=== PATIENT | male | born 1940 | race Caucasian/White ===

== ENCOUNTER → 2016-12-03 | Outpatient (CLI) | payer OTHER | END | disposition home or self-care (01) | LOC: PCVCCLINIC 15:00 | PROVIDERS: ATTEND Internal Medicine Cardiovascular Disease | DX: I10 Essential (primary) hypertension (principal); E11.9 Type 2 diabetes mellitus without complications; E78.4 Other hyperlipidemia; I42.9 Cardiomyopathy, unspecified; Z95.810 Presence of automatic (implantable) cardiac defibrillator; Z79.82 Long term (current) use of aspirin; Z87.891 Personal history of nicotine dependence | CPT/HCPCS: 80061; 93005; G0463 ==

== ENCOUNTER → 2016-12-17 | Outpatient (CLI) | payer OTHER | END | disposition home or self-care (01) | LOC: PCVCIMAG 15:50 | PROVIDERS: ATTEND Internal Medicine Cardiovascular Disease | DX: I42.8 Other cardiomyopathies (principal); E11.9 Type 2 diabetes mellitus without complications; I10 Essential (primary) hypertension; Z95.0 Presence of cardiac pacemaker | CPT/HCPCS: 93306 ==

== ENCOUNTER → 2017-09-20 | Outpatient (CLI) | payer OTHER | END | disposition home or self-care (01) | LOC: PCVCCLINIC 14:25 | DX: I10 Essential (primary) hypertension (principal); I42.9 Cardiomyopathy, unspecified; E78.00 Pure hypercholesterolemia, unspecified; J44.9 Chronic obstructive pulmonary disease, unspecified; G47.30 Sleep apnea, unspecified; Z95.0 Presence of cardiac pacemaker; Z87.891 Personal history of nicotine dependence; Z79.899 Other long term (current) drug therapy; Z79.82 Long term (current) use of aspirin | CPT/HCPCS: 80061; 93005; G0463 ==

== ENCOUNTER → 2018-04-11 | Outpatient (CLI) | payer OTHER | END | disposition home or self-care (01) | LOC: PCVCCLINIC 15:03 | PROVIDERS: ATTEND Internal Medicine Cardiovascular Disease | DX: I11.0 Hypertensive heart disease with heart failure (principal); I50.23 Acute on chronic systolic (congestive) heart failure; I63.9 Cerebral infarction, unspecified; I42.9 Cardiomyopathy, unspecified; E78.00 Pure hypercholesterolemia, unspecified; E78.5 Hyperlipidemia, unspecified; M79.604 Pain in right leg; M79.605 Pain in left leg; G47.30 Sleep apnea, unspecified; J44.9 Chronic obstructive pulmonary disease, unspecified; Z95.810 Presence of automatic (implantable) cardiac defibrillator; F17.210 Nicotine dependence, cigarettes, uncomplicated; Z79.82 Long term (current) use of aspirin | CPT/HCPCS: 80061; 93005; G0463 ==

== ENCOUNTER → 2018-04-14 | Outpatient (CLI) | payer OTHER ==
--- NOTE | 2018-04-14 12:25 | PCVCIMAG ---
EXAM: BILATERAL LOWER EXTREMITY ARTERIAL DUPLEX INDICATION: Peripheral Arterial Disease. Leg pain. FINDINGS: Right Leg: Common femoral and profunda femoral arteries are patent. Complete occlusion throughout the superficial femoral artery. The popliteal artery refills and appears patent. The peroneal artery is occluded. The anterior tibial and posterior tibial arteries are patent. Left Leg: Common femoral and profunda femoral arteries are patent. Increased systolic velocity of 547 cm/s distal [place] superficial femoral artery consistent with 95% stenosis. Popliteal artery is patent. The anterior tibial, peroneal, and posterior tibial arteries are patent. IMPRESSION: Complete occlusion throughout the right superficial femoral artery. 95% stenosis distal [place] left superficial femoral artery. LOC:[id number]
== END | disposition home or self-care (01) ==
LOC: PCVCIMAG 11:08
PROVIDERS: ATTEND Internal Medicine Cardiovascular Disease
DX: I73.9 Peripheral vascular disease, unspecified (principal)
CPT/HCPCS: 93925

== ENCOUNTER → 2018-04-18 | Outpatient (CLI) | payer OTHER | LOC: PCVCCLINIC 14:47 | PROVIDERS: ATTEND Nuclear Medicine Nuclear Cardiology | DX: I11.0 Hypertensive heart disease with heart failure (principal); I50.43 Acute on chronic combined systolic (congestive) and diastolic (congestive) heart failure; I50.9 Heart failure, unspecified; J44.9 Chronic obstructive pulmonary disease, unspecified; E78.00 Pure hypercholesterolemia, unspecified | CPT/HCPCS: 36415; G0463 ==

== ENCOUNTER → 2018-04-25 | Outpatient (CLI) | payer OTHER ==
[~2018-04-25] MED LIST: CLOPIDOGREL BISULFATE 75 MG TABLET ONE; DIAZEPAM 10 MG TABLET. ONE; EPTIFIBATIDE BOLUS 2,000 MCG/ML 10ML VIAL. IV ONE; HEPARIN SODIUM 5,000 UNIT/ML VIAL for PCVC. ONE; IODIXANOL 270 MG/ML 100 ML VIAL. ONE; IV NORMAL SALINE 1000ML BAG 1,000 ML ONE; LIDOCAINE 1%/EPI 1:100,000 20 ML VIAL. ONE; MIDAZOLAM HCL/PF 2 MG/2 ML VIAL. ONE; fentaNYL PF VIAL 100 MCG/2 ML VIAL ONE
--- NOTE | 2018-04-25 11:04 | PCVCINTER ---
EXAM: 1. AORTOGRAM AND BILATERAL LOWER EXTREMITY RUNOFF ANGIOGRAM 2. BILATERAL RENAL ANGIOGRAPHY 3. LEFT SUPERFICIAL FEMORAL ARTERY ATHERECTOMY AND STENT PLACEMENT. 4. SECONDARY THROMBECTOMY LEFT SUPERFICIAL FEMORAL ARTERY. 5. DRUG COATED BALLOON ANGIOPLASTY LEFT SUPERFICIAL FEMORAL ARTERY. 6. RIGHT RENAL ARTERY STENT PLACEMENT. INDICATION: Peripheral arterial disease. Bilateral claudication. Hypertension. Renal atherosclerosis. No prior catheter based angiographic study is available. A full diagnostic angiogram study is performed today and the decision to intervene is based on this diagnostic study. PROCEDURE: Procedure and risks of angiography intervention is appropriate including limb loss stroke and were discussed with the patient's family and consent obtained. The patient's right groin was prepped in the normal sterile fashion. IV conscious sedation was used throughout procedure with appropriate monitoring from 8:45 AM through 10:15 AM. Ultrasound was used to interrogate the right groin and showed the right common femoral artery to be patent. A permanent spot film was obtained. Under ultrasound guidance access into the right common femoral artery was obtained and a 5 [place]ar[place] sheath was placed. Through this a 5 [place]arag[place] flush catheter was placed into the abdominal aorta at the level of the renal arteries and AP aortogram was performed. Catheter was positioned at the aortic bifurcation and both oblique views of the pelvis were obtained. Catheter was positioned into the right external iliac artery and right leg runoff angiography was performed. Catheter was exchanged for a visceral catheter was placed into the right renal arteries and right renal angiograms obtained. Catheter was placed into the the left renal arteries and left renal angiograms were obtained. Catheter was advanced to the level of the left external iliac artery and left leg runoff angiography was obtained. Patient was given 4500 units of heparin. Stent placement across the areas of high-grade stenosis in the right renal artery was carried out with a 7 x 18 [place] blue with subsequent dilatation to 8.0 mm. A 6 [place]ar[place]uan crossover sheath was placed via the right groin to the level of the left common femoral artery. Atherectomy of the left superficial femoral artery was performed with 2.0 mm [employer] laser atherectomy catheter in the standard fashion. Following atherectomy small areas of thrombus were observed and because of this secondary thrombectomy throughout the left superficial femoral artery was carried out with mechanical suction thrombectomy catheter in the standard fashion. Minimal debris was removed. Stent placement across the areas of high-grade stenosis in the left superficial femoral artery was carried out with a 8 x 120 Smart control stent with subsequent dilatation to 6.0 mm. Following this drug coated balloon angioplasty of the left superficial femoral artery was carried out with a 6 x 120 and 6 x 40 [employer] Living Jackie Thai UNDERCOLLAR BASTER catheters. Follow-up angiogram was performed. Catheters and wires removed. Sheath was removed and hemostasis obtained using the FISH device. No immediate complications. FINDINGS: Aortogram: There is one right and one left renal artery. Moderate plaque infrarenal abdominal aorta with moderate tortuosity without significant stenosis. Pelvis: Mild ectasia of the right and left common iliac arteries without significant stenosis. Both internal iliac arteries are patent. Moderate plaque both external iliac arteries causing only mild stenosis. Moderate plaque in the right and left common femoral arteries. Right common and profunda femoral arteries are patent. Mild stenosis lower left common femoral artery. Left profunda femoral artery is patent. Right renal artery: Moderate plaque at the origin vessel causing 80% stenosis. No branch vessel stenosis. Left renal artery: Mild plaque proximal vessel causes minimal stenosis. Right leg: Long segment occlusion superficial femoral artery begins 2-3 cm beyond its origin. The superficial femoral artery refills in its distal most portion. Mild stenosis upper popliteal artery. 40% stenosis lower popliteal artery. Three-vessel runoff into the foot with the posterior tibial artery being dominant. Left leg: Calcific plaque mid/distal superficial femoral artery results in areas of 80 and 90% stenosis. The popliteal artery is patent. Three-vessel runoff into the foot. Left superficial femoral artery: Following procedure as above vessel shows good patency. Right renal artery: Following stent placement good patency at the right renal arteries restored. IMPRESSION: 80 and 90% stenoses mid/distal [place] left superficial femoral artery was treated as above with good patency restored. 80% right renal artery stenosis was treated with stent placement with good patency restored. Occlusion [place] right superficial femoral artery. Patient will return next week for correction of this. LOC:[id number]
== END | disposition home or self-care (01) ==
LOC: PCVCIMAG 12:54
PROVIDERS: ATTEND Nuclear Medicine Nuclear Cardiology
DX: I70.213 Atherosclerosis of native arteries of extremities with intermittent claudication, bilateral legs (principal); I71.4 Abdominal aortic aneurysm, without rupture; I42.9 Cardiomyopathy, unspecified; J44.9 Chronic obstructive pulmonary disease, unspecified; I50.9 Heart failure, unspecified; E78.00 Pure hypercholesterolemia, unspecified; F17.210 Nicotine dependence, cigarettes, uncomplicated; G47.30 Sleep apnea, unspecified; Z86.73 Personal history of transient ischemic attack (TIA), and cerebral infarction without residual deficits; Z79.82 Long term (current) use of aspirin; Z95.810 Presence of automatic (implantable) cardiac defibrillator; Z98.890 Other specified postprocedural states; Z79.899 Other long term (current) drug therapy
CPT/HCPCS: 36252; 37186; 37227; 37236; 75716; 76937; C1725; C1751; C1757; C1760; C1769; C1876; C1885; C1887; C1894; C2623; J1327; J1644; J2250; J3010; J3490; J7030; 99152; 99153

== ENCOUNTER → 2018-05-05 | Outpatient (CLI) | payer OTHER ==
[~2018-05-05] MED LIST changes: +FUROSEMIDE 40 MG/4 ML VIAL. ONE; -HEPARIN SODIUM 5,000 UNIT/ML VIAL for PCVC. ONE; +HEPARIN for ARTERIAL LINE 1,500 ML ONE; +HEPARIN for SUB-Q USE 5,000 UNIT/ML VIAL. ONE; +IOHEXOL 350 MG/ML 100 ML VIAL. ONE; +IOHEXOL 350 MG/ML 50 ML VIAL. ONE
--- NOTE | 2018-05-05 22:50 | PCVCINTER ---
EXAM: 1. RIGHT SUPERFICIAL FEMORAL ARTERY ATHERECTOMY AND STENT PLACEMENT. 2. SECONDARY THROMBECTOMY RIGHT SUPERFICIAL FEMORAL ARTERY. 3. DRUG COATED BALLOON ANGIOPLASTY RIGHT SUPERFICIAL FEMORAL ARTERY. INDICATION: Peripheral arterial disease. Coronary artery disease. Nonhealing ulcer right lower extremity. Hypertension. Renal atherosclerosis. No prior catheter based angiographic study is available. A full diagnostic angiogram study is performed today and the decision to intervene is based on this diagnostic study. PROCEDURE: Procedure and risks of angiography intervention is appropriate including limb loss stroke and were discussed with the patient's family and consent obtained. The patient's left groin was prepped in the normal sterile fashion. IV conscious sedation was used throughout procedure with appropriate monitoring from 11:15 AM through 12:30 PM. Ultrasound was used to interrogate the left groin and showed the left common femoral artery to be patent. A permanent spot film was obtained. Under ultrasound guidance access into the left common femoral artery was obtained and a 6 Lao crossover sheath was placed via the left groin to the level of the right common femoral artery. Atherectomy of the right superficial femoral artery was performed with 2.0 mm [place] laser atherectomy catheter in the standard fashion. Following atherectomy small areas of thrombus were observed and because of this secondary thrombectomy throughout the right superficial femoral artery was carried out with mechanical suction thrombectomy catheter in the standard fashion. Minimal debris was removed. Stent placement across the areas of high-grade stenosis in the right superficial femoral artery was carried out with a 8 x 150, 8 x 150, an 8 x 100 Smart control stents with subsequent dilatation to 6.0 mm. Following this drug coated balloon angioplasty of the right superficial femoral artery was carried out with a 6 x 120, 6 x 120, 6 x 120, and 6 x 40 [employer] Jackie Thai EDITORIAL MANAGER catheters. Follow-up angiogram was performed. Catheters and wires removed. Sheath was removed and hemostasis obtained using the FISH device. No immediate complications. FINDINGS: Right superficial femoral artery: Following procedure as above vessel shows good patency throughout. Note is made of relatively slow flow throughout both lower extremities consistent with patient's known severely decreased cardiac ejection fraction. 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 Note is made of an area of mild residual stenosis mid upper superficial femoral artery not felt to be hemodynamically significant. Unchanged 50% stenosis distal popliteal artery. LOC:OFFICE
--- NOTE | 2018-05-11 14:22 | PCVCINTER ---
APPROVED REPORT Study performed: 05/05/2018 12:41:57 Patient Details Patient Status: Out-Patient Room #: 2 The patient is a 77 year-old Male Event Personnel Brea Givens MD, Nicolasa Gamino RT(R)(), Memo Laughlin RT(R), Brian Klein RN Risk Factors Arterial HypertensionDysplipidemia (Type: 1), Cerebrovascular DiseasePeripheral Vascular Disease, Chronic Lung DiseaseHypercholesterolemiaPhysical Activity, Last Creatanine 1.5Tobacco History (Current/Recent(w/in 1 year)) Previous Procedures/Diagnoses Previous Femoral Procedure, Hypertension, CHF, Diabetes, PVD Procedure Narrative The patient was brought electively to the Cardiac Catheterization Laboratory and was prepped and draped in a sterile manner. A Right Heart Catheterization was performed with a 7 Fr. Thebes-Yesi catheter and pressure were recorded. Cardiac outputs were obtained by the Thermal DilutionFick and Thermal Dilution method. A 6F sheath was inserted into the right femoral artery. Coronary angiography was performed using coronary diagnostic catheters. The right coronary system was accessed and visualized with a JR4 catheter. The left coronary system was accessed and visualized with a JL4 catheter. The left ventricle was accessed and visualized with a Straight Pigtail catheter. Left ventriculogram was performed in [place] projection. Closure device was deployed with a 6 Fr FISH. Hemostasis was obtained with manual pressure following sheath removal without any complications. The patient tolerated the procedure well and there were no complications associated with the procedure. There was no hematoma. Hemodynamics The right atrial mean pressure is 13 mmHg. The right ventricular pressure is 57/11 mmHg. The pulmonary artery pressure is 48/32 mmHg with a mean of 40 mmHg. The mean pulmonary capillary wedge pressure is 29 mmHg. The aortic pressure is 113/55 mmHg with a mean of 81 mmHg. The left ventricular pressure is 115/19 mmHg with a mean of 17 mmHg. The cardiac output using thermo method is 2.52 L/min. The cardiac index using thermo method is 1.1 L/min/m2. Conclusion #1 successful right heart catheterization with moderate elevation of pulmonary pressure see above #2 moderate left ventricular elevation moderately severe global hypokinesis EF 15-20% range #3 large left main with mild disease giving rise to LAD and circumflex #4 LAD diagonal system is moderate size with mild plaquing no occlusive disease #5 a large circumflex OM although nondominant has an eccentric lesion of 50-60% no occlusive disease #6 large dominant right coronary artery is widely patent Recommendations and plan: We'll continue aggressive risk factor modification. Needs aggressive diuresis. Saw fluid restriction revisited. Close follow-up will be scheduled. No indication for coronary intervention
== END | disposition home or self-care (01) ==
LOC: PCVCINTER 12:47
PROVIDERS: ATTEND Internal Medicine Cardiovascular Disease
DX: I70.238 Atherosclerosis of native arteries of right leg with ulceration of other part of lower leg (principal); L97.819 Non-pressure chronic ulcer of other part of right lower leg with unspecified severity; I70.92 Chronic total occlusion of artery of the extremities; I25.10 Atherosclerotic heart disease of native coronary artery without angina pectoris; E11.9 Type 2 diabetes mellitus without complications; I11.0 Hypertensive heart disease with heart failure; I50.20 Unspecified systolic (congestive) heart failure; I70.1 Atherosclerosis of renal artery; Z79.84 Long term (current) use of oral hypoglycemic drugs; N40.0 Benign prostatic hyperplasia without lower urinary tract symptoms; Z86.73 Personal history of transient ischemic attack (TIA), and cerebral infarction without residual deficits; E78.5 Hyperlipidemia, unspecified; Z85.46 Personal history of malignant neoplasm of prostate; Z98.890 Other specified postprocedural states; Z90.79 Acquired absence of other genital organ(s); F17.210 Nicotine dependence, cigarettes, uncomplicated; Z72.89 Other problems related to lifestyle; Z88.1 Allergy status to other antibiotic agents; Z88.8 Allergy status to other drugs, medicaments and biological substances; Z79.899 Other long term (current) drug therapy; Z79.82 Long term (current) use of aspirin; I42.9 Cardiomyopathy, unspecified; I44.7 Left bundle-branch block, unspecified; Z95.810 Presence of automatic (implantable) cardiac defibrillator; G47.30 Sleep apnea, unspecified; J44.9 Chronic obstructive pulmonary disease, unspecified
CPT/HCPCS: 37186; 37227; 76937; 93460; 99152; 99153; C1725; C1751; C1757; C1760; C1769; C1876; C1885; C1887; C1894; C2623; J1327; J1644; J1940; J2250; J3010; J3490; J7030; Q9967; 93458

== ENCOUNTER → 2018-08-09 | Outpatient (CLI) | payer MEDICARE, OTHER ==
--- NOTE | 2018-08-09 08:35 | PCVCIMAG ---
EXAM: BILATERAL CAROTID DUPLEX INDICATION: Carotid Occlusive Disease. FINDINGS: Doppler Measurements (centimeters per second): RIGHT: Peak CCA-61, Peak ECA-100, Diastolic ICA-33, Peak ICA-82, ICA/CCA Ratio-1.3. LEFT: Peak CCA-86, Peak ECA-121, Diastolic ICA-21, Peak ICA-106, ICA/CCA Ratio-1.2. RIGHT CAROTID: The carotid bulb has moderate plaque. The proximal internal carotid artery shows <40% stenosis. The common carotid artery shows no significant stenosis. The external carotid artery shows no significant stenosis. LEFT CAROTID: The carotid bulb has moderate plaque. The proximal internal carotid artery shows <40% stenosis. The common carotid artery shows no significant stenosis. The external carotid artery shows no significant stenosis. Antegrade flow in both vertebral arteries. IMPRESSION: <40% stenosis of the right internal carotid artery with moderate plaque. <40% stenosis of the left internal carotid artery with moderate plaque. LOC:[place] [id number]
--- NOTE | 2018-08-09 10:25 | PCVCIMAG ---
EXAM: BILATERAL LOWER EXTREMITY ARTERIAL DUPLEX INDICATION: Peripheral Arterial Disease. Leg pain. FINDINGS: Right Leg: Satisfactory arterial waveforms throughout the common/profunda/superficial femoral, popliteal, anterior tibial, peroneal, and posterior tibial arteries. No flow limiting stenosis seen. Previous superficial femoral artery stent maintaining good patency. Left Leg: Satisfactory arterial waveforms throughout the common/profunda/superficial femoral, popliteal, anterior tibial, peroneal, and posterior tibial arteries. No flow limiting stenosis seen. Superficial femoral artery stent maintaining good patency. IMPRESSION: No flow limiting stenosis in the right lower extremity. No flow limiting stenosis in the left lower extremity. Previous bilateral superficial femoral artery stents maintaining good patency. LOC:[id number]
== END | disposition home or self-care (01) ==
LOC: PCVCIMAG 08:15
PROVIDERS: ATTEND Internal Medicine Cardiovascular Disease
DX: I65.23 Occlusion and stenosis of bilateral carotid arteries (principal); I73.9 Peripheral vascular disease, unspecified; E78.00 Pure hypercholesterolemia, unspecified; E11.9 Type 2 diabetes mellitus without complications; I63.9 Cerebral infarction, unspecified; E78.5 Hyperlipidemia, unspecified
CPT/HCPCS: 93880; 93925

== ENCOUNTER → 2018-10-14 | Outpatient (CLI) | payer MEDICARE ==
--- NOTE | 2018-10-14 10:28 | PCVCIMAG ---
APPROVED REPORT Study performed: 10/14/2018 09:17:29 EXAM: Comprehensive 2D, Doppler, and color-flow Echocardiogram Patient Location: Echo lab Status: routine BSA: 2.23 HR: 100 bpmBP: 114/68 mmHg Rhythm: Pacemaker, tachycardia Other Information Study Quality: Technically Limited Technically limited study due to lung disease. Indications Congestive Heart Failure COPD Cardiomyopathy ICD 2D Dimensions IVSd: 15.24 (7-11mm) LVDd: 56.94 mm PWd: 11.99 (7-11mm)Ascending Ao: 34.52 (22-36mm) LVDs: 51.27 (25-40mm) Left Atrium: 50.67 (27-40mm) Aortic Root: 32.56 mm LV Single Plane 4CH: 18.73 % LV Single Plane 2CH: 11.90 % Biplane EF: 18.1 % Volumes Left Atrial Volume (Systole) Single Plane 4CH: 128.40 mLSingle Plane 2CH: 137.70 mL LA ESV Index: 60.00 mL/m2 Aortic Valve AoV Peak Piyush.: 0.84 m/s AO Peak Gr.: 2.85 mmHgLVOT Max P.13 mmHg LVOT Max V: 0.53 m/s Mitral Valve E/A Ratio: 0.6 MV Decel. Time: 212.02 ms MV E Max Ipyush.: 0.67 m/s MV A Piyush.: 1.05 m/s IVRT: 173.01 ms Pulmonary Valve PV Peak Piyush.: 0.55 m/sPV Peak Gr.: 1.21 mmHg Pulmonary Vein P Vein S: 0.27 m/sP Vein A: 0.29 m/s P Vein D: 0.39 m/sP Vein A Dur.: 141.9 msec P Vein S/D Ratio: 0.69 Tricuspid Valve TR Peak Piyush.: 2.87 m/s TR Peak Gr.: 33.07 mmHg Left Ventricle Left ventricle is mildly dilated. There is normal LV segmental wall motion. Mild concentric left ventricular hypertrophy. Left ventricular ejection fraction is severely decreased. LVEF is 15-20%. Grade I - abnormal relaxation pattern. Right Ventricle The right ventricle is normal size. The right ventricular systolic function is normal. Pacemaker lead is present in the right ventricle. Atria Left atrium is severely dilated. Right atrium is mildly dilated. Pacemaker lead is present in the right atrium. Aortic Valve The aortic valve is normal in structure. No aortic regurgitation is present. There is no aortic valvular stenosis. Mitral Valve The mitral valve is normal in structure. Moderate mitral regurgitation. No evidence of mitral valve stenosis. Tricuspid Valve The tricuspid valve is normal in structure. Mild tricuspid regurgitation with PAP of 40 mmHg. Pulmonic Valve The pulmonary valve is normal in structure. There is no pulmonic valvular regurgitation. Great Vessels The aortic root is normal in size. IVC is normal in size and collapses >50% with inspiration. Pericardium There is no pericardial effusion. There is no pleural effusion. <Conclusion> Left ventricle is mildly dilated. Mild concentric left ventricular hypertrophy. Left ventricular ejection fraction is severely decreased. LVEF is 15-20%. Grade I - abnormal relaxation pattern. The right ventricle is normal size. Left atrium is severely dilated. Right atrium is mildly dilated. Pacemaker lead is present in the right atrium. Pacemaker lead is present in the right ventricle. The aortic valve is normal in structure. Moderate mitral regurgitation. Mild tricuspid regurgitation with PAP of 40 mmHg. The aortic root is normal in size. There is no pericardial effusion.
== END | disposition home or self-care (01) ==
LOC: PCVCIMAG 09:31
PROVIDERS: ATTEND Internal Medicine Cardiovascular Disease
DX: I08.1 Rheumatic disorders of both mitral and tricuspid valves (principal); J44.9 Chronic obstructive pulmonary disease, unspecified; I50.9 Heart failure, unspecified; I42.9 Cardiomyopathy, unspecified
CPT/HCPCS: 93306

== ENCOUNTER → 2019-05-05 | Outpatient (CLI) | payer MEDICARE | END | disposition home or self-care (01) | LOC: PCVCCLINIC 13:30 | PROVIDERS: ATTEND Internal Medicine Cardiovascular Disease | DX: I25.10 Atherosclerotic heart disease of native coronary artery without angina pectoris (principal); I34.0 Nonrheumatic mitral (valve) insufficiency; I63.9 Cerebral infarction, unspecified; I65.23 Occlusion and stenosis of bilateral carotid arteries; E78.00 Pure hypercholesterolemia, unspecified; J44.9 Chronic obstructive pulmonary disease, unspecified; I11.0 Hypertensive heart disease with heart failure; I50.9 Heart failure, unspecified; E11.51 Type 2 diabetes mellitus with diabetic peripheral angiopathy without gangrene; E78.5 Hyperlipidemia, unspecified; F17.210 Nicotine dependence, cigarettes, uncomplicated; Z72.89 Other problems related to lifestyle; Z79.899 Other long term (current) drug therapy; Z79.82 Long term (current) use of aspirin; Z95.810 Presence of automatic (implantable) cardiac defibrillator; Z88.8 Allergy status to other drugs, medicaments and biological substances | CPT/HCPCS: 36415; 80061; 93284; G0463 ==

== ENCOUNTER → 2019-05-12 | Outpatient (CLI) | payer MEDICARE | END | disposition home or self-care (01) | LOC: PCVCCLINIC 14:00 | PROVIDERS: ATTEND Internal Medicine Cardiovascular Disease | DX: I11.0 Hypertensive heart disease with heart failure (principal); I50.9 Heart failure, unspecified; E11.9 Type 2 diabetes mellitus without complications; E78.5 Hyperlipidemia, unspecified; F17.210 Nicotine dependence, cigarettes, uncomplicated; Z86.73 Personal history of transient ischemic attack (TIA), and cerebral infarction without residual deficits; Z85.46 Personal history of malignant neoplasm of prostate; Z90.79 Acquired absence of other genital organ(s); Z72.89 Other problems related to lifestyle; Z88.0 Allergy status to penicillin; Z88.8 Allergy status to other drugs, medicaments and biological substances; Z88.6 Allergy status to analgesic agent | CPT/HCPCS: 36415 ==

== ENCOUNTER → 2019-07-07 | Outpatient (CLI) | payer MEDICARE | LOC: PCVCCLINIC 13:00 | PROVIDERS: ATTEND Internal Medicine Cardiovascular Disease | DX: Z45.02 Encounter for adjustment and management of automatic implantable cardiac defibrillator (principal); I50.9 Heart failure, unspecified; E11.9 Type 2 diabetes mellitus without complications; E78.5 Hyperlipidemia, unspecified | CPT/HCPCS: 93284 ==